=== PATIENT | female | born 1985 | race Caucasian/White ===

== ENCOUNTER → 2019-06-20 16:17 | Outpatient (CLI) | payer OTHER, SELFPAY ==
[2017-06-16 04:56] VITALS: BMI 27.0
[2019-06-25 15:27] LABS: HPV APTIMA, High Risk Negative
== END ==
PROVIDERS: Visit Provider Obstetrics & Gynecology
DX: Z12.4 Encounter for screening for malignant neoplasm of cervix (principal)
CPT/HCPCS: 87624; 88175; G0145

== ENCOUNTER → 2022-04-18 | Outpatient (CLI) | payer OTHER, SELFPAY ==
[2022-04-24 16:52] LABS: HPV APTIMA, High Risk Negative (Negative)
== END | disposition home or self-care (01) ==
LOC: LABSPEC 13:25
PROVIDERS: Visit Provider Obstetrics & Gynecology
DX: Z12.4 Encounter for screening for malignant neoplasm of cervix (principal)
CPT/HCPCS: 87624; 88175; G0145